=== PATIENT | male | born 1985 | race Caucasian/White ===

== ENCOUNTER 2018-01-14 08:48 | Day surgery (SDC) | payer OTHER ==
[~2018-01-14 08:48] MED LIST: BUPIVACAINE HCL 0.5%/EPI 1:200000 INJ 1.8 ML CARTRIDGE ONE; DEXAMETHASONE SOD PHOS INJ 10 MG/1 ML VIAL ONE; FENTANYL CITRATE INJ/PF 100 MCG/2 ML AMPUL ONE; GLYCOPYRROLATE INJ 0.4 MG/2 ML VIAL ONE; LIDOCAINE 2% INJ-PF (20 MG/ML) 10 ML AMPUL ONE; MIDAZOLAM 2 MG/2 ML INJ ONE; ONDANSETRON HCL INJ/PF 4 MG/2 ML SDV ONE; PROPOFOL INJ 200 MG/20 ML VIAL IV ONE; SUCCINYLCHOLINE CHLORIDE INJ 200 MG/10 ML VIAL ONE
--- NOTE | 2018-01-20 17:00 | [facility] OPERATIVE REPORT E ---
[facility] Operative Report NAME: KARTIK PARISH AGE: 32Y DATE OF SURGERY: 01/14/2018 ROOM: PREOPERATIVE DIAGNOSIS: ACUTE RECURRENT TONSILLITIS. POSTOPERATIVE DIAGNOSIS: ACUTE RECURRENT TONSILLITIS. OPERATION: Bilateral tonsillectomy, patient age greater than 12. SURGEON: APOLINAR BIANCHI D.O. ANESTHESIA: General endotracheal tube. ANESTHESIA STAFF: MARNI Neal. ESTIMATED BLOOD LOSS: 5 mL. FLUIDS: 600 mL. COMPLICATIONS: None. DRAINS: None. SPONGE COUNT: Verified. MATERIALS FORWARDED SPECIMEN: Left and right tonsillar tissue. FINDINGS: 1. The tonsils were noted to be 1 to 2+ in size, were endophytic in nature, were cryptic in appearance, and were with tonsillar debris present. 2. The soft palatal tissues were redundant in nature, and the uvula was unremarkable in appearance. INDICATIONS: This is a 32-year-old white male patient, who was seen and evaluated in the [facility] office. The patient had been referred for, and the patient himself complained of a history of acute recurrent tonsillitis episodes occurring throughout the course of each year, every year over the years, requiring antibiotic treatment. The patient experiences significant sore throat discomfort with the episodes, and is with decreased p.o. intake. The patient misses work and/or school at times each year over the years, due to the episodes. After extensive discussion with the patient, recommendations and plan was made to proceed with a tonsillectomy. The procedure and all of its risks and complications were discussed in detail with the patient. He voiced an understanding of the described surgical plan, agreed to proceed, and consent was obtained. PROCEDURE: The patient was taken to the main operating room and placed on the operating room table in the supine positon. Appropriate monitors were placed. Using mask and IV access, general anesthesia was induced. The patient was next transorally intubated without difficulty. The patient was rotated 90 degrees and positioned for tonsil surgery. Injection of local anesthetic with epinephrine around the peritonsillar areas. The patient's lips, teeth, tongue and inside of the mouth were inspected and noted to be without defects. There was a mouth gag inserted. It was opened, and the patient was placed into suspension. There was a soft catheter placed through the patient's nose that was used to suspend the soft palate. Findings are as noted above. At this point, the plasma J-hook device was used to dissect and remove tonsillar tissue on each side. This device was also used to provide adequate hemostasis. Saline irritation was performed and suctioned. There was adequate hemostasis noted. The soft catheter was next released and removed from the patient's nose. The mouth gag was removed from the patient's mouth without difficulty. There was no damage to the lips, teeth, tongue, gums, or inside of the mouth. The patient was then returned to the anesthesia staff and was allowed to emerge from general anesthesia. The patient was extubated in the main operating room and was then transported to the post-anesthesia recovery unit in stable condition. There were no complications. DICTATING PHYSICIAN: APOLINAR BIANCHI D.O. [id number] PHY#: [id number] ID: [id number] JOB#: [id number] ACCT: [id number] cc:APOLINAR BIANCHI D.O. >
== END 2018-01-14 11:40 | disposition home or self-care (01) ==
LOC: SC 08:48
PROVIDERS: ATTEND Otolaryngology
DX: J03.91 Acute recurrent tonsillitis, unspecified (principal)
CPT/HCPCS: 36415; 86003 ×24; 82785; 88304 ×2; 42826; J2250; J3490 ×2; J3010; J0330; J2405; J2704; J1100; 170